=== PATIENT | male | born 1980 | race American Indian/Alaskan Native ===

== ENCOUNTER 2021-03-17 15:48 | Emergency (ER) | payer OTHER ==
[2021-03-17 16:27] VITALS: BP 116/77
[2021-03-17] MEDS ORDERED: MORPHINE 4 MG/1 ML INJ ONE (16:56)
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
[2021-03-17] MEDS ORDERED: IBUPROFEN 800 MG TAB PO STA (20:28)
[2021-03-17] MEDS ORDERED: ACETAMINOPHEN 500 MG TAB PO STA (20:28)
== END 2021-03-17 20:36 | disposition home or self-care (01) ==
LOC: ED 15:48
DX: S89.91XA Unspecified injury of right lower leg, initial encounter (principal); R07.89 Other chest pain; F17.200 Nicotine dependence, unspecified, uncomplicated; Z79.899 Other long term (current) drug therapy; Z91.013 Allergy to seafood; Z88.8 Allergy status to other drugs, medicaments and biological substances; V49.59XA Passenger injured in collision with other motor vehicles in traffic accident, initial encounter; Y92.410 Unspecified street and highway as the place of occurrence of the external cause; Y93.89 Activity, other specified; Y99.8 Other external cause status
CPT/HCPCS: 70450; 71111; 73562; 99284; J2270